=== PATIENT | male | born 2000 | race Caucasian/White ===

== ENCOUNTER 2024-02-09 18:52 | Emergency (ER) | payer OTHER ==
[~2024-02-09] VITALS: Ht 165.1 cm; Wt 56.7 kg
[2024-02-09 19:34] VITALS: BP 136/111
[2024-02-09] MEDS ORDERED: Diphth,Pertuss(Acell),Tet Vac 0.5 ML VIAL IM ONE (19:40)
[2024-02-09] MEDS ORDERED: RX Prepack 6 Tabs Oxycodone 5mg UD ONE (19:50)
== END 2024-02-09 20:35 | disposition home or self-care (01) ==
LOC: ER 18:52
DX: T23.241A Burn of second degree of multiple right fingers (nail), including thumb, initial encounter (principal); T23.251A Burn of second degree of right palm, initial encounter; X08.8XXA Exposure to other specified smoke, fire and flames, initial encounter; Y93.G3 Activity, cooking and baking
CPT/HCPCS: 90715; 99282; A9270